=== PATIENT | male | born 1975 | race Caucasian/White ===

== ENCOUNTER 2016-08-30 21:08 | Emergency (ER) | payer OTHER ==
[~2016-08-30] VITALS: Ht 182.8 cm; Wt 106.6 kg
[2016-08-30] MEDS ORDERED: DELTASONE20 M1 PO (22:08)
== END 2016-08-30 22:02 | disposition home or self-care (01) ==
LOC: ED 21:08
DX: L50.9 Urticaria, unspecified (principal); T78.40XA Allergy, unspecified, initial encounter; Z88.0 Allergy status to penicillin